=== PATIENT | male | born 1980 | race Asian ===

== ENCOUNTER 2019-03-10 23:37 | Emergency (ER) | payer OTHER ==
[~2019-03-10] VITALS: Ht 165.1 cm; Wt 66.0 kg
[2019-03-11] MEDS ORDERED: PREDNISONE 20MG TABLET PO ONE (00:45)
[2019-03-11] MEDS ORDERED: DIPHENHYDRAMINE 50MG/ML VIAL IM ONE (00:45)
[2019-03-11] MEDS ORDERED: FAMOTIDINE 20MG TABLET PO ONE (00:45)
[2019-03-11] MEDS: PREDNISONE 20MG TABLET PO SCH ×2 (02:10→02:27)
[2019-03-11 02:19] VITALS: BP 125/74
== END 2019-03-11 02:29 | disposition home or self-care (01) ==
LOC: ER 23:53
DX: T78.49XA Other allergy, initial encounter (principal); R07.89 Other chest pain; L50.0 Allergic urticaria; Z90.49 Acquired absence of other specified parts of digestive tract; Z91.013 Allergy to seafood
CPT/HCPCS: 96372; 99283; J1200; J7512